=== PATIENT | female | born 1945 | race Caucasian/White ===

== ENCOUNTER 2024-09-17 21:39 | Inpatient (IN) | payer MEDICARE ==
[~2024-09-17] VITALS: Ht 157.5 cm; Wt 77.1 kg
[2024-09-17 22:49] LABS: BASOPHILS % (AUTO) 0.5 % (0.0-2.0); EOSINOPHILS # (AUTO) 0.1 K/uL (0.0-0.7); EOSINOPHILS % (AUTO) 1.2 % (0.0-6.0); HEMATOCRIT 37 % (33-45); HEMOGLOBIN 12.1 g/dL (11.5-14.8); LYMPHOCYTES # (AUTO) 1.2 K/uL (0.8-4.8); LYMPHOCYTES % (AUTO) 12.1 % (20.0-44.0); MEAN CORPUSCULAR HEMOGLOBIN 25 PG (26.0-33.0); MEAN CORPUSCULAR HGB CONC 33 g/dl (31.0-36.0); MEAN CORPUSCULAR VOLUME 76 fL (82-100); MONOCYTES # (AUTO) 0.6 K/uL (0.1-1.30); MONOCYTES % (AUTO) 6.2 % (2.0-12.0); NEUTROPHILS # (AUTO) 7.8 K/uL (1.8-8.9); PLATELET COUNT (AUTO) 291 K/uL (150-450); RED BLOOD CELL COUNT(AUTO) 4.91 MIL/uL (4.0-5.2); RED CELL DISTRIBUTION WIDTH 15.4 % (11.5-15.0); WHITE BLOOD COUNT (AUTO) 9.8 K/uL (4.3-11.0)
[2024-09-17] MEDS ORDERED: LORAZEPAM INJ 2 MG/ML VIAL ONE (23:01)
[2024-09-17] MEDS: LORAZEPAM INJ 2 MG/ML VIAL IM/IV ONE (23:05)
[2024-09-17] MEDS: LORAZEPAM INJ 2 MG/ML VIAL IV ONE (23:06)
[2024-09-17] MEDS: LORAZEPAM 4 MG/ML VIAL IM ONE (23:08)
[2024-09-17 23:15] LABS: ALANINE AMINOTRANSFERASE 18 U/L (12-78); ALBUMIN 3.8 g/dL (3.4-5.0); ALCOHOL, BLOOD 4 mg/dL (0-10); ALKALINE PHOSPHATASE 105 U/L (46-116); ASPARTATE AMINOTRANSFERASE 15 U/L (15-37); BILIRUBIN,DIRECT 0.1 mg/dL (0.0-0.2); BILIRUBIN,TOTAL 0.3 mg/dL (0.2-1.0); CALCIUM, SERUM 9.5 mg/dL (8.5-10.1); CARBON DIOXIDE 26 mmol/L (21-32); CHLORIDE 105 mmol/L (98-107); GLUCOSE 168 mg/dL (74-106); POTASSIUM 3.7 mmol/L (3.5-5.1); SODIUM SERUM 140 mmol/L (136-145); TOTAL PROTEIN, SERUM 7.1 g/dL (6.4-8.2); UREA NITROGEN, BLOOD 27 mg/dL (7-18)
[2024-09-17 23:58] LABS: APPEARANCE,URINE CLEAR (CLEAR); BILIRUBIN,URINE 1+ (NEGATIVE); BLOOD, URINE NEGATIVE Ery/uL (NEGATIVE); COLOR,URINE YELLOW (YELLOW); KETONES,URINE 1+ mg/dL (NEGATIVE); LEUKOCYTE ESTERASE ,URINE 1+ (NEGATIVE); NITRITE, URINE NEGATIVE (NEGATIVE); PH,URINE 5.5 (5.0-8.0); PROTEIN,URINE 1+ mg/dl (NEGATIVE); UGLUCOSE NEGATIVE (NEGATIVE); UROBILINOGEN,URINE 0.2 EU/dL (0.2)
[2024-09-17 23:58] LABS: ACETAMINOPHEN <10 ug/ml (10-30); SALICYLATE 1.5 mg/dL (2.8-20.0)
[2024-09-18 00:23] LABS: SQUAMOUS EPITHELIAL CELL,UR Many /HPF (None Seen)
[2024-09-18 00:25] LABS: RBC,URINE 0-2 /HPF (0-2)
[2024-09-18 00:26] LABS: ADD URINE CULTURE YES; BACTERIA,URINE Few /HPF (None Seen); MUCUS,URINE Moderate /LPF (None Seen)
[2024-09-18 01:18] LABS: AMPHETAMINE, URINE NEGATIVE (NEGATIVE); BARBITURATE, URINE NEGATIVE (NEGATIVE); BENZODIAZEPINE, URINE NEGATIVE (NEGATIVE); CANNABINOID, URINE NEGATIVE (NEGATIVE); COCCAINE, URINE NEGATIVE (NEGATIVE); OPIATE, URINE NEGATIVE (NEGATIVE); PHENCYCLIDINE SCREEN,URINE NEGATIVE (NEGATIVE)
[2024-09-18] MEDS ORDERED: CEPHALEXIN MONOHYDRATE 500 MG CAPSULE PO ONE (07:08)
[2024-09-18] MEDS: CEPHALEXIN MONOHYDRATE 500 MG CAPSULE PO ONE (07:17)
[2024-09-18] MEDS ORDERED: OLANZAPINE 10 MG VIAL IM ONE (08:15)
[2024-09-18] MEDS: OLANZAPINE 10 MG VIAL IM ONE (08:19)
[2024-09-18] MEDS ORDERED: LORAZEPAM INJ 2 MG/ML VIAL ONE (09:23)
[2024-09-18] MEDS: LORAZEPAM INJ 2 MG/ML VIAL IM ONE (09:28)
[2024-09-18] MEDS ORDERED: diphenhydrAMINE HCL 50 MG/ML VIAL ONE ×2 (09:31→12:14)
[2024-09-18] MEDS: diphenhydrAMINE HCL 50 MG/ML VIAL IM ONE (09:35)
[2024-09-18] MEDS ORDERED: Magnesium 1GM/D5W 100ML PREMIX 200 ML IV ONE (10:42)
[2024-09-18] MEDS: Magnesium 1GM/D5W 100ML PREMIX 200 ML IV ONE (11:02)
[2024-09-18] MEDS: AMIODARONE 150 MG in IV D5W 100 ML IV ONE (11:02)
[2024-09-18] MEDS: AMIODARONE 450 MG in IV D5W 250 ML IV ONE (11:16)
[2024-09-18] MEDS ORDERED: METF-440 PO (11:34)
[2024-09-18] MEDS ORDERED: VENL150C58 PO (11:34)
[2024-09-18] MEDS ORDERED: ATOR20TA PO (11:34)
[2024-09-18] MEDS ORDERED: LEVO5TAB13 PO (11:34)
[2024-09-18] MEDS ORDERED: PRAM0.5T11 PO (11:34)
[2024-09-18] MEDS ORDERED: LISI20TA30 PO (11:34)
[2024-09-18] MEDS ORDERED: METO50TA16 PO (11:34)
[2024-09-18] MEDS ORDERED: METF-442 PO (11:34)
[2024-09-18 11:42] LABS: NT-PRO BNP 239 pg/mL (0-125)
[2024-09-18] MEDS ORDERED: HALOPERIDOL LACTATE INJ 5 MG/ML VIAL ONE (12:14)
[2024-09-18] MEDS: diphenhydrAMINE HCL 50 MG/ML VIAL IM PRN (12:24)
[2024-09-18] MEDS: HALOPERIDOL LACTATE INJ 5 MG/ML VIAL IM PRN (12:24)
[2024-09-18] MEDS ORDERED: Z GUARD REMEDY 4 OZ OINT TP PRN (13:30)
[2024-09-18] MEDS ORDERED: MAGNESIUM HYDROXIDE 30 ML UDC PO PRN (13:30)
[2024-09-18] MEDS ORDERED: MAG HYDROX/AL HYDROX/SIMETH 30 ML UDC PO PRN (13:30)
[2024-09-18] MEDS ORDERED: ONDANSETRON HCL/PF 4 MG/2 ML VIAL IVP PRN (13:30)
[2024-09-18] MEDS: ENOXAPARIN SODIUM 40 MG/0.4 ML DISP.SYRIN SQ SCH (13:30)
[2024-09-18] MEDS ORDERED: ENOXAPARIN SODIUM 40 MG/0.4 ML DISP.SYRIN SQ ONE (14:36)
[2024-09-18] MEDS ORDERED: AMIODARONE 150 MG/3 ML VIAL IV ONE (21:11)
[2024-09-18] MEDS: AMIODARONE 450 MG in IV D5W 241 ML IV PRN (21:23)
[2024-09-19 06:28] LABS: BASOPHILS % (AUTO) 0.3 % (0.0-2.0); EOSINOPHILS # (AUTO) 0.1 K/uL (0.0-0.7); EOSINOPHILS % (AUTO) 1.3 % (0.0-6.0); HEMATOCRIT 39 % (33-45); HEMOGLOBIN 12.8 g/dL (11.5-14.8); LYMPHOCYTES % (AUTO) 12.4 % (20.0-44.0); MEAN CORPUSCULAR HEMOGLOBIN 25 PG (26.0-33.0); MEAN CORPUSCULAR HGB CONC 33 g/dl (31.0-36.0); MEAN CORPUSCULAR VOLUME 77 fL (82-100); MONOCYTES # (AUTO) 0.7 K/uL (0.1-1.30); MONOCYTES % (AUTO) 8.2 % (2.0-12.0); NEUTROPHILS # (AUTO) 6.4 K/uL (1.8-8.9); NEUTROPHILS % (AUTO) 77.8 % (43.0-81.0); PLATELET COUNT (AUTO) 286 K/uL (150-450); RED BLOOD CELL COUNT(AUTO) 5.07 MIL/uL (4.0-5.2); RED CELL DISTRIBUTION WIDTH 15.6 % (11.5-15.0); WHITE BLOOD COUNT (AUTO) 8.3 K/uL (4.3-11.0)
[2024-09-19 06:52] LABS: CALCIUM, SERUM 9.6 mg/dL (8.5-10.1); CREATININE 1.2 mg/dL (0.6-1.3); PHOSPHORUS 5.1 mg/dL (2.5-4.9); POTASSIUM 3.9 mmol/L (3.5-5.1)
[2024-09-19] MEDS: risperiDONE 0.25 MG TABLET PO SCH (07:00)
[2024-09-19] MEDS ORDERED: risperiDONE 0.25 MG TABLET PO ONE (09:59)
[2024-09-19] MEDS: IV NS 0.9% 1,000 ML IV PRN (17:50)
[2024-09-19] MEDS: METOPROLOL TARTRATE 50 MG TABLET PO SCH (17:57)
[2024-09-19] MEDS ORDERED: METFORMIN 500 MG TABLET PO SCH (18:00)
[2024-09-19] MEDS: HYDROCODONE/APAP 5/325MG TABLET PO PRN (18:07)
[2024-09-19 20:00] VITALS: BP 119/68; TEMP 98.8; O2SAT 95
[2024-09-19 21:40] VITALS: BP 145/63; TEMP 98.1; O2SAT 98
[2024-09-19] MEDS: ACETAMINOPHEN 325 MG TABLET PO PRN (21:49)
[2024-09-19] MEDS: TRAZODONE 50 MG TABLET PO PRN (21:50)
[2024-09-20] VITALS: BP 95/60; TEMP 99.1; O2SAT 95
[2024-09-20] MEDS: diphenhydrAMINE HCL 50 MG/ML VIAL IM PRN (02:44)
[2024-09-20] MEDS: HALOPERIDOL LACTATE INJ 5 MG/ML VIAL IM PRN (02:44)
[2024-09-20 04:00] VITALS: BP 96/64; TEMP 98.4; O2SAT 95
[2024-09-20 08:00] VITALS: BP 122/64; TEMP 98.6; O2SAT 97
[2024-09-20] MEDS: VENLAFAXINE XR 150 MG CAP.SR.24H PO SCH (08:20)
[2024-09-20] MEDS: ATORVASTATIN 10 MG TABLET PO SCH (08:20)
[2024-09-20] MEDS ORDERED: Medication Not On Formulary EA (Metformin Hcl 1,000 MG) PO SCH (09:00)
[2024-09-20 16:00] VITALS: BP 106/55; TEMP 98.6; O2SAT 95
[2024-09-20] MEDS ORDERED: ENOXAPARIN SODIUM 40 MG/0.4 ML DISP.SYRIN SQ SCH (21:00)
[2024-09-20 21:30] VITALS: BP 106/65; TEMP 97.6; O2SAT 95
[2024-09-20] MEDS: ENOXAPARIN SODIUM 30 MG/0.3 ML DISP.SYRIN SQ SCH (22:51)
[2024-09-21 04:30] VITALS: BP 121/54; TEMP 97.7; O2SAT 95
[2024-09-21 08:00] VITALS: BP 120/60; TEMP 98; O2SAT 95
[2024-09-21 16:00] VITALS: BP 121/62; TEMP 98.1; O2SAT 95
[2024-09-22] VITALS: BP 147/77; TEMP 98.1; O2SAT 99
[2024-09-22 08:00] VITALS: BP 142/74; TEMP 98.9; O2SAT 98
[2024-09-22 20:00] VITALS: BP 142/76; TEMP 97.9; O2SAT 96
[2024-09-23 04:00] VITALS: BP 132/64; TEMP 98.1; O2SAT 96
[2024-09-23 08:00] VITALS: BP 132/59; TEMP 98.1; O2SAT 96
[2024-09-23 08:09] VITALS: BP 132/59
[2024-09-23] MEDS ORDERED: TRAZ-252 PO (10:37)
== END 2024-09-23 14:17 | disposition home or self-care (01) | DRG 308 ==
LOC: ER 21:48 → TRANSITION 09-19 04:41 → TELE-TD 09-19 13:40 → TELE1 09-19 14:01 → MEDSG1 09-20 08:23
PROVIDERS: ADMIT Internal Medicine; ATTEND Surgery Vascular Surgery
DX: I48.92 Unspecified atrial flutter (principal); G93.41 Metabolic encephalopathy; F03.93 Unspecified dementia, unspecified severity, with mood disturbance; D68.69 Other thrombophilia; M87.842 Other osteonecrosis, left hand; F03.92 Unspecified dementia, unspecified severity, with psychotic disturbance; E66.9 Obesity, unspecified; E83.42 Hypomagnesemia; F29 Unspecified psychosis not due to a substance or known physiological condition; M19.09 Primary osteoarthritis, other specified site; M11.232 Other chondrocalcinosis, left wrist; S63.8X2A Sprain of other part of left wrist and hand, initial encounter; X58.XXXA Exposure to other specified factors, initial encounter; Y93.9 Activity, unspecified; Y92.009 Unspecified place in unspecified non-institutional (private) residence as the place of occurrence of the external cause; F41.9 Anxiety disorder, unspecified; F32.9 Major depressive disorder, single episode, unspecified; Z71.3 Dietary counseling and surveillance; Z68.31 Body mass index [BMI] 31.0-31.9, adult; Z79.84 Long term (current) use of oral hypoglycemic drugs
CPT/HCPCS: 36415; 73110; 80048-TC; 80076-TC; 81001; 83735-TC; 84100-TC; 85025-TC; 87086-TC; 93307-TC; 97112-TC; 97116-TC; 97530-TC; A4223; G0378; G0480; J0282; J1200; J1630; J1650; J2060; J3475; J3490; J7030; J7060